=== PATIENT | female | born 1945 | race Caucasian/White ===

== ENCOUNTER 2016-07-06 12:11 | Emergency (ER) | payer MEDICARE, OTHER ==
[~2016-07-06] VITALS: Ht 162.6 cm; Wt 47.6 kg
[~2016-07-06 12:11] MED LIST: FELO10TA PO; FOLI1TAB51 PO; LISI40TA PO; OMEP20CA5 PO; THIA100T5 PO
[2016-07-06 12:28] VITALS: BP 125/87
[2016-07-06] MEDS ORDERED: TETANUS-DIPTH-ACEL PERTUSSIS 0.5ML SYRG IM ONE (13:45)
== END 2016-07-06 13:53 | disposition home or self-care (01) ==
LOC: ER 12:23
DX: S60.511A Abrasion of right hand, initial encounter (principal); Z79.899 Other long term (current) drug therapy; I10 Essential (primary) hypertension; F17.210 Nicotine dependence, cigarettes, uncomplicated; W55.03XA Scratched by cat, initial encounter; Y93.89 Activity, other specified; Y99.9 Unspecified external cause status; Y92.89 Other specified places as the place of occurrence of the external cause; Z23 Encounter for immunization
CPT/HCPCS: 90471; 90715

== ENCOUNTER 2016-07-09 14:12 | Emergency (ER) | payer MEDICARE, OTHER ==
[~2016-07-09] VITALS: Ht 162.6 cm; Wt 49.4 kg
[2016-07-09] MEDS ORDERED: SODIUM CHLORIDE 0.9% 1,000 ML IV ONE (17:52)
[2016-07-09] MEDS ORDERED: PIPERACILLIN-TAZOB 3.375GM 100 ML IV ONE (18:00)
[2016-07-09 18:33] LABS: Albumin 3.8 g/dL (3.4-5.0); Bilirubin, Total 0.7 mg/dL (0.2-1.0); Potassium 3.6 mmol/L (3.5-5.1); Total Protein 7.7 g/dL (6.4-8.2)
[2016-07-09 18:42] LABS: INR 0.99 (0.9-1.15); Partial Thromboplastin Time 24.1 sec (22.64-33.71); Prothrombin Time 10.2 sec (9.37-12.3)
[2016-07-09 18:49] LABS: Basophils # (auto) 0 uL; Basophils % (auto) 0.2 % (0.0-2.0); Eosinophils # (auto) 0 uL; Eosinophils % (auto) 0.3 % (0.0-7.0); Lymphocytes # (auto) 1.1 uL; Lymphocytes % (auto) 12.8 % (10.0-50.0); Mean Corpuscular Hemoglobin 30.8 pg (28.0-32.0); Mean Corpuscular Hgb Conc. 32.5 g/dL (32.0-36.0); Mean Corpuscular Volume 94.9 fL (80.0-100.0); Mean Platelet Volume 7.9 fL (7.4-10.4); Monocytes # (auto) 0.5 uL; Monocytes % (auto) 5.4 % (0.0-12.0); Neutrophils % (auto) 81.3 % (37.0-80.0); Platelet Count (auto) 311 10^3/uL (140-450); Red Cell Distribution Width 12.4 % (11.6-16.0); White Blood Cell 8.7 10^3/uL (4.4-10.8)
[2016-07-09 19:44] LABS: B-Type Natriuretic Peptide 14.51 pg/mL (0-100)
[2016-07-09 20:06] LABS: Urine Bilirubin Negative (Negative); Urine Blood Negative /uL (Negative); Urine Color Yellow (Yellow); Urine Glucose Normal (Normal); Urine Ketone Negative (Negative); Urine Nitrite Negative (Negative); Urine RBC 1 /hpf (0 - 4); Urine Squamous Epithelial Cell FEW /hpf (<5); Urine Urobilinogen Normal (Negative); Urine pH 7.5 (5.0-8.0)
[2016-07-09 20:08] LABS: Temperature: 22.3 C (20.0-25.0)
[2016-07-09 21:27] VITALS: BP 160/90
== END 2016-07-09 22:16 | disposition short-term general hospital (02) ==
LOC: ER 14:13
DX: L03.113 Cellulitis of right upper limb (principal); I10 Essential (primary) hypertension; F17.210 Nicotine dependence, cigarettes, uncomplicated; W55.01XA Bitten by cat, initial encounter; Y93.89 Activity, other specified; Y99.8 Other external cause status; Y92.89 Other specified places as the place of occurrence of the external cause
CPT/HCPCS: 36415; 71010; 80053; 81001; 83605; 83880; 84484; 85025; 85610; 85730; 87040; 94761; 96365; 96366; 99285; J2543; J7030

== ENCOUNTER 2017-05-14 14:29 | Emergency (ER) | payer MEDICARE ==
[~2017-05-14] VITALS: Ht 157.5 cm; Wt 63.5 kg
[~2017-05-14 14:29] MED LIST changes: -OMEP20CA5 PO; +OMEP20CA74 PO
[2017-05-14] MEDS ORDERED: NEOMYCIN-BACITRACIN-POLYM UNITDOSE PKG TOP OINT TOP ONE (16:00)
[2017-05-14] MEDS ORDERED: LIDOCAINE 2%HCL (LOCAL ANESTH.) INJ 20ML MDV ID ONE (16:00)
[2017-05-14 18:17] VITALS: BP 154/65
== END 2017-05-14 17:14 | disposition home or self-care (01) ==
LOC: EDBD 14:29 → ER 14:34
DX: S01.111A Laceration without foreign body of right eyelid and periocular area, initial encounter (principal); S09.90XA Unspecified injury of head, initial encounter; I10 Essential (primary) hypertension; F17.210 Nicotine dependence, cigarettes, uncomplicated; K21.9 Gastro-esophageal reflux disease without esophagitis; Z79.899 Other long term (current) drug therapy; W18.39XA Other fall on same level, initial encounter; Y93.89 Activity, other specified; Y92.099 Unspecified place in other non-institutional residence as the place of occurrence of the external cause; Y99.8 Other external cause status
CPT/HCPCS: 12013; 70450